=== PATIENT | female | born 1975 | race African-American/Black ===

== ENCOUNTER 2019-11-10 14:57 | Emergency (ER) | payer OTHER ==
[2019-11-10 15:15] VITALS: BP 150/92; PULSE 87; TEMP 98.5; BMI 37.0
[2019-11-10 17:02] LABS: BASO % 1.2 % (0-2.0); EOS % 1.3 % (0-4.5); HEMATOCRIT 40.7 % (32.4-45.2); HEMOGLOBIN 13.3 GM/dL (10.7-15.3); LYMPH % 33.8 % (8-40); MCH 27.5 pg (25.7-33.7); MCHC 32.6 g/dl (32.0-36.0); MEAN CELL VOLUME 84.3 fl (80-96); MEAN PLT VOLUME 9.7 fl (7.5-11.1); MONO % 8.6 % (3.8-10.2); NEUT % 55.1 % (42.8-82.8); PLATELET COUNT 302 K/MM3 (134-434); RBC 4.83 M/mm3 (3.60-5.2); RDW 15.7 % (11.6-15.6); WHITE BLOOD COUNT 7.4 K/mm3 (4.0-10.0)
--- NOTE | 2019-11-10 17:02 | PDOC ---
History of Present Illness - General Chief Complaint: Chest Pain Stated Complaint: RESPIRATORY INFECTION Time Seen by Provider: 11/10/19 16:01 History Source: Patient Exam Limitations: No Limitations - History of Present Illness Initial Comments: 11/10/19 16:54 Patient is a 44 year old female with h/o migraine, HTN, b/l menescus repair, c/o chest heaviness x 6 days. States this heaviness is constant, 6/10 across the chest with no aggravating or alleviating factors. Patient states she has had these symptoms in the past, and usually a respiratory infection. States in that instance she gets a Z-Yoshi from her PMD and her symptoms go away. States she called her PMD but he had no availability to see her today so is here for evaluation. Patient had recent travelled to [place] 10/18-. No leg swelling, no history of PE. FamHx: neg. she denies any cough, fever, chills, shortness of breath. She does not feel fatigue, weakness or malaise. Patient is also requesting a note to say she does not have the Viveros virus. Patient states she mentioned to her boss that she was having pressure and was sent home with a request that she brings a note before she comes back to work. PMD: Dr. Liam Pierson PSOCHX: occ etoh, neg cig, neg drug. ALL: NKDA GENERAL/CONSTITUTIONAL: [No fever or chills. No weakness. No weight change.] HEAD, EYES, EARS, NOSE AND THROAT: [No change in vision. No ear pain or discharge. No sore throat.] CARDIOVASCULAR: [(+) chest pain (-) shortness of breath.] RESPIRATORY: [No cough, wheezing, or hemoptysis.] GASTROINTESTINAL: [No nausea, vomiting, diarrhea or constipation. No rectal bleeding.] GENITOURINARY: [No dysuria, frequency, or change in urination.] MUSCULOSKELETAL: [No joint or muscle swelling or pain. No neck or back pain.] SKIN AND BREASTS: [No rash or easy bruising.] NEUROLOGIC: [No headache, vertigo, loss of consciousness, or loss of sensation.] PSYCHIATRIC: [No depression or anxiety.] ENDOCRINE: [No increased thirst. No abnormal weight change.] HEMATOLOGIC/LYMPHATIC: [No anemia, easy bleeding, or history of blood clots.] ALLERGIC/IMMUNOLOGIC: [No hives or skin allergy. No latex allergy.] GENERAL: [The patient is awake, alert, and fully oriented, in no acute distress.] HEAD: [Normal with no signs of trauma.] EYES: [Pupils equal, round and reactive to light, extraocular movements intact, sclera anicteric, conjunctiva clear.] ENT: [Ears normal, nares patent, oropharynx clear without exudates. Moist mucous membranes.] NECK: [Normal range of motion, supple without lymphadenopathy, JVD, or masses.] LUNGS: [Breath sounds equal, clear to auscultation bilaterally. No wheezes, and no crackles.] HEART: [Regular rate and rhythm, normal S1 and S2 without murmur, rub.] ABDOMEN: [Soft, nontender, normoactive bowel sounds. No guarding, no rebound. No masses.] EXTREMITIES: [Normal range of motion, no edema. No clubbing or cyanosis. No cords, erythema, or tenderness.] NEUROLOGICAL: [Cranial nerves II through XII grossly intact. Normal speech, normal gait.] PSYCH: [Normal mood, normal affect.] SKIN: [Warm, Dry, normal turgor, no rashes or lesions noted.] Past History - Past Medical History Allergies/Adverse Reactions: Allergies Allergy/AdvReac Type Severity Reaction Status Date / Time No Known Allergies Allergy Verified 11/10/19 15:09 Home Medications: Ambulatory Orders Azithromycin [Zithromax -] 250 mg PO DAILY #6 tablet 11/10/19 Fluconazole [Diflucan] 150 mg PO ONCE #1 tablet 11/10/19 Fluconazole [Diflucan] 150 mg PO ONCE #1 tablet 11/10/19 Frovatriptan Succinate 2.5 mg PO PRN 11/10/19 Nadolol 0 mg PO DAILY 11/10/19 Topiramate [Topamax] 25 mg PO BID 11/10/19 COPD: No - Psycho Social/Smoking Cessation Hx Smoking History: Never smoked Hx Alcohol Use: No Drug/Substance Use Hx: No *Physical Exam - Vital Signs Last Vital Signs Temp Pulse Resp BP Pulse Ox 98.5 F 87 20 150/92 100 11/10/19 15:09 11/10/19 15:11/10/19 15:11/10/19 15:11/10/19 15:09 ED Treatment Course - LABORATORY CBC & Chemistry Diagram: 11/10/19 16:30 11/10/19 16:30 - ADDITIONAL ORDERS Additional order review: Laboratory Results 11/10/19 11/10/19 16:30 16:30 PT with INR 13.30 H INR 1.13 H Sodium 140 Potassium 3.7 Chloride 109 H Carbon Dioxide 24 Anion Gap 7 L BUN 9.3 Creatinine 0.8 Est GFR (CKD-EPI)AfAm 103.19 Est GFR (CKD-EPI)NonAf 89.04 Random Glucose 84 Calcium 9.4 Total Bilirubin 0.4 AST 10 L ALT 18 Alkaline Phosphatase 59 Creatine Kinase 119 Troponin I < 0.02 Total Protein 7.4 Albumin 3.5 11/10/19 16:30 RBC 4.83 MCV 84.3 MCHC 32.6 RDW 15.7 H MPV 9.7 Neutrophils % 55.1 Lymphocytes % 33.8 Monocytes % 8.6 Eosinophils % 1.3 Basophils % 1.2 Medical Decision Making - Medical Decision Making 11/10/19 16:54 Patient is a 44 year old female with h/o migraine, HTN, b/l menescus repair, c/o chest heaviness x 6 days. States this heaviness is constant, 6/10 across the chest with no aggravating or alleviating factors. Patient states she has had these symptoms in the past, and usually a respiratory infection. States in that instance she gets a Z-Yoshi from her PMD and her symptoms go away. States she called her PMD but he had no availability to see her today so is here for evaluation. Patient had recent travelled to [place] 10/18-. No leg swelling, no history of PE. FamHx: neg. she denies any cough, fever, chills, shortness of breath. She does not feel fatigue, weakness or malaise. Patient is also requesting a note to say she does not have the Viveros virus. Patient states she mentioned to her boss that she was having pressure and was sent home with a request that she brings a note before she comes back to work. Patient is asymptomatic, non reproducible, nonpleuritic chest tightness Will get troponin x1, EKG, labs, chest x-ray 11/10/19 17:02 EKG: SR at 75, normal axis, no ST or T wave changes. Chest x-ray shows an infiltrate, could represent pneumonia or atelectasis. Troponin is negative No acute findings on lab work I discussed the physical exam findings, ancillary test results and final diagnoses with the patient. I answered all of the patient's questions. The patient was satisfied with the care received and felt comfortable with the discharge plan and treatment plan. The Patient agrees to follow up with the primary care physician within 24-72 hours. Discharge - Discharge Information Problems reviewed: Yes Clinical Impression/Diagnosis: Pneumonia Qualifiers: Pneumonia type: due to unspecified organism Laterality: unspecified laterality Lung location: unspecified part of lung Qualified Code(s): J18.9 - Pneumonia, unspecified organism Condition: Stable Disposition: HOME - Additional Discharge Information Prescriptions: Fluconazole [Diflucan] 150 mg PO ONCE #1 tablet Fluconazole [Diflucan] 150 mg PO ONCE #1 tablet Azithromycin [Zithromax -] 250 mg PO DAILY #6 tablet - Follow up/Referral Referrals: ON STAFF,NOT [Primary Care Provider] - - Patient Discharge Instructions Patient Printed Discharge Instructions: Pneumonia-Adult Additional Instructions: Your Discharge Instructions: You must call primary care physician within 24 hours to arrange follow-up. Return to the Emergency Department with any new, persistent or worsening symptoms, for fever, chills, SOB, dizziness or any other concerning changes that may occur. - Post Discharge Activity Work/Back to School Note: Back to Work
[2019-11-10 17:09] LABS: INR 1.13 (0.83-1.09); PROTHROMBIN TIME (PATIENT) 13.3 SEC (9.7-13.0)
[2019-11-10 17:37] LABS: ALBUMIN 3.5 g/dl (3.4-5.0); ALK PHOS 59 U/L (45-117); ANION GAP 7 MMOL/L (8-16); BILIRUBIN,TOTAL 0.4 mg/dL (0.2-1); BLOOD UREA NITROGEN 9.3 mg/dL (7-18); CALCIUM 9.4 mg/dL (8.5-10.1); CHLORIDE 109 mmol/L (98-107); CO2 24 mmol/L (21-32); CREATININE 0.8 mg/dL (0.55-1.3); GLUCOSE,RANDOM 84 mg/dL (74-106); POTASSIUM 3.7 mmol/L (3.5-5.1); SGOT/AST 10 U/L (15-37); SGPT/ALT 18 U/L (13-61); SODIUM 140 mmol/L (136-145); TOT PROT 7.4 g/dl (6.4-8.2)
--- NOTE | 2019-11-11 10:28 | EKG ---
Test Reason : Blood Pressure : / mmHG Vent. Rate : 075 BPM Atrial Rate : 075 BPM P-R Int : 146 ms QRS Dur : 088 ms QT Int : 396 ms P-R-T Axes : 073 042 050 degrees QTc Int : 442 ms NORMAL SINUS RHYTHM POSSIBLE LEFT ATRIAL ENLARGEMENT BORDERLINE ECG NO PREVIOUS ECGS AVAILABLE Confirmed by GINETTE ALVES MD ([id number]) on 11/11/2019 10:28:26 AM Referred By: Confirmed By:GINETTE ALVES MD
== END 2019-11-10 17:59 | disposition home or self-care (01) ==
LOC: JER 14:57 → JERFT 14:57 → JER 17:59
DX: J18.9 Pneumonia, unspecified organism (principal); I10 Essential (primary) hypertension
CPT/HCPCS: 36415; 71046-TC-FY; 80053; 82550; 84484; 85025; 85610; 93005; 93010; 99285-25

== ENCOUNTER 2020-05-05 16:37 | Emergency (ER) | payer OTHER ==
[2020-05-05 16:53] VITALS: BP 164/99; PULSE 92; TEMP 98.3; BMI 37.8
--- NOTE | 2020-05-05 17:22 | PDOC ---
History of Present Illness - General Chief Complaint: Pain Stated Complaint: PAIN ON KNEE Time Seen by Provider: 05/05/20 17:04 History Source: Patient Exam Limitations: No Limitations - History of Present Illness Initial Comments: 05/05/20 17:19 44-year-old female past medical history of mixed connective tissue disease presenting to the ED with left calf pain for 3 days. Patient states that she was at home had no inciting event and felt a sharp pain in her left calf which became progressively worse. Patient states the pain is worse on ambulation and improves with rest. 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 Past History - Medical History Allergies/Adverse Reactions: Allergies Allergy/AdvReac Type Severity Reaction Status Date / Time No Known Allergies Allergy Verified 05/05/20 16:40 Home Medications: Ambulatory Orders Azithromycin [Zithromax -] 250 mg PO DAILY #6 tablet 11/10/19 Fluconazole [Diflucan] 150 mg PO ONCE #1 tablet 11/10/19 Fluconazole [Diflucan] 150 mg PO ONCE #1 tablet 11/10/19 Frovatriptan Succinate 2.5 mg PO PRN 11/10/19 Nadolol 0 mg PO DAILY 11/10/19 Topiramate [Topamax] 25 mg PO BID 11/10/19 Ibuprofen [Ibu] 600 mg PO TID #30 tablet 05/05/20 COPD: No Other medical history: MIXED CONNECTIVE TISSUE DISEASE - Reproductive History Is Patient Now?: No - Immunization History Immunization Up to Date: Yes - Psycho-Social/Smoking History Smoking History: Never smoked - Substance Abuse Hx (Audit-C & DAST Scrn) How often the patient has a drink containing alcohol: Never Score: In Men: 4 or > Positive; In Women: 3 or > Positive: 0 Screen Result (Pos requires Nsg. Audit-10AR): Negative In the last yr the pt used illegal drug/Rx for NonMed reason: No Score: Yes response is considered Positive: 0 Screen Result (Positive result requires Nsg. DAST-10): Negative *Physical Exam - Vital Signs Last Vital Signs Temp Pulse Resp BP Pulse Ox 98.3 F 92 H 18 164/99 100 05/05/20 16:40 05/05/20 16:40 05/05/20 16:40 05/05/20 16:40 05/05/20 16:40 - Physical Exam 05/05/20 17:21 Gen: AAOx 3, no acute distress, comfortable, no signs of respiratory distress HENT: atraumatic, normocephalic with no laceration or contusion. Nasal mucosa without erythema. Oropharynx without erythema or exudates. Mucous membranes moist. EYES: PERRL, EOM intact, conjunctiva pink NECK: supple; trachea midline; no JVD, no lymphadenopathy, or thyromegaly CV: RRR no murmurs, gallops, or rubs. CHEST: CTA b/l no wheezing, rales or rhonchi ABD: +BS/ND. no TTP; soft, no rebound, no guarding EXTREMITY: no cyanosis or erythema. 2+ dorsalis pedis, posterior tibial, and radial pulse. No pedal edema; no calf swelling but tenderness to palpation of left posterior calf SKIN: no rash, warm and dry, no diaphoresis HEME: no purpura or ecchymosis NEURO: normal speech, CN II-XII intact, sensation intact, normal gait, no cerebellar deficits MS: 5/5 strength in all extremities, FROM intact in all extremities. ED Treatment Course - RADIOLOGY Radiology Studies Ordered: Category Date Time Status DUPLEX VASCUL US-1 LEG [US] Stat Ultrasound 05/05/20 17:18 Ordered Medical Decision Making - Medical Decision Making 05/05/20 17:21 44-year-old female with left posterior calf pain Vital signs stable except for asymptomatic hypertension Will obtain duplex of left lower extremity to rule out DVT Will reassess based on results Left lower extremity duplex study there is no evidence of DVT involving the left leg Pain is most likely MSK Pt to follow up with PCP in 1 week for repeat DVT study, pt agrees and understands Pt appears well and is safe and stable for discharge with strict return precautions including signs and symptoms requiring immediate return to the ED Supportive care instructions explained and given to pt. Reasons to return emergently to ER explained and given. Importance of follow up with PMD and other specialists as indicated stressed to pt. Pt verbalized understanding of instructions. Pt to follow up with PMD in 2 days. Discharge - Discharge Information Problems reviewed: Yes Clinical Impression/Diagnosis: Lower extremity pain, left Condition: Stable Disposition: HOME - Additional Discharge Information Prescriptions: Ibuprofen [Ibu] 600 mg PO TID #30 tablet - Follow up/Referral Referrals: Liam Ochoa [Primary Care Provider] - - Patient Discharge Instructions Patient Printed Discharge Instructions: DI for Calf Muscle Strain Additional Instructions: PLEASE FOLLOW UP WITH YOUR PCP WITHOUT FAIL TO SCHEDULE REPEAT LEFT LOWER EXTREMITY DVT STUDY - Post Discharge Activity Work/Back to School Note: Back to Work
[2020-05-05] MEDS ORDERED: KETOROLAC TROMETHAMINE 30 MG/1 ML VIAL IM ONE (17:40)
[2020-05-05] MEDS ORDERED: KETOROLAC TROMETHAMINE 30 MG/1 ML VIAL ONE (17:42)
== END 2020-05-05 18:23 | disposition home or self-care (01) ==
LOC: JER 16:37 → JERFT 16:37
PROC: 3E023GC Introduction of Other Therapeutic Substance into Muscle, Percutaneous Approach (ICD-10-PCS; principal; 2020-05-05)
DX: M79.662 Pain in left lower leg (principal)
CPT/HCPCS: 93971-TC; 99284-25

== ENCOUNTER 2020-10-17 16:24 | Emergency (ER) | payer OTHER ==
[2020-10-17 16:47] VITALS: BP 161/91; PULSE 90; TEMP 99.4; BMI 38.0
[2020-10-17] MEDS ORDERED: KETOROLAC TROMETHAMINE 30 MG/1 ML VIAL IM ONE (17:56)
[2020-10-17] MEDS ORDERED: KETOROLAC TROMETHAMINE 30 MG/1 ML VIAL ONE (17:58)
== END 2020-10-17 18:33 | disposition home or self-care (01) ==
LOC: JERFT 16:24
PROC: 3E0233Z Introduction of Anti-inflammatory into Muscle, Percutaneous Approach (ICD-10-PCS; principal; 2020-10-17)
DX: M62.838 Other muscle spasm (principal); M25.511 Pain in right shoulder
CPT/HCPCS: 72100-TC-FY; 73030-TC-RT-FY; 99284-25

== ENCOUNTER 2021-03-05 02:22 | Emergency (ER) | payer OTHER ==
[2021-03-05 02:54] VITALS: BMI 38.0
[2021-03-05] MEDS ORDERED: SODIUM CHLORIDE 0.9% 500 ML INFUS.BAG IV ONE (03:00)
[2021-03-05] MEDS ORDERED: FAMOTIDINE 20 MG/50 ML IVPB 50 ML IVPB ONE (03:00)
[2021-03-05] MEDS ORDERED: methylPREDNISolone NA SUCC 125 MG/2 ML VIAL IVPB ONE (03:04)
[2021-03-05] MEDS ORDERED: methylPREDNISolone NA SUCC 125 MG/2 ML VIAL ONE (03:08)
[2021-03-05] MEDS ORDERED: FAMOTIDINE 20 MG/50 ML IVPB 20 MG/50 ML MG IVPB ONE ×4 (03:08→08:38)
[2021-03-05 03:57] LABS: BASO % 0.6 % (0-2.0); EOS % 0.3 % (0-4.5); HEMATOCRIT 45.2 % (32.4-45.2); HEMOGLOBIN 15.1 GM/dL (10.7-15.3); LYMPH % 34.4 % (8-40); MCH 28.3 pg (25.7-33.7); MCHC 33.3 g/dl (32.0-36.0); MEAN CELL VOLUME 84.9 fl (80-96); MEAN PLT VOLUME 8.4 fl (7.5-11.1); MONO % 6.1 % (3.8-10.2); NEUT % 58.6 % (42.8-82.8); PLATELET COUNT 385 10^3/uL (134-434); RBC 5.32 M/mm3 (3.60-5.2); RDW 15.2 % (11.6-15.6); WHITE BLOOD COUNT 9.2 K/mm3 (4.0-10.0)
[2021-03-05] MEDS ORDERED: EPINEPHrine 1:1,000 0.3 MG/0.3 ML SYR IM ONE (04:12)
[2021-03-05] MEDS ORDERED: EPINEPHrine/PF 1 MG/1 ML (1:1,000) AMPULE ONE (04:15)
[2021-03-05 04:17] LABS: ALBUMIN 3.4 g/dl (3.4-5.0); CALCIUM 8.8 mg/dL (8.5-10.1)
[2021-03-05 04:18] LABS: BLOOD UREA NITROGEN 12.1 mg/dL (7-18)
[2021-03-05 04:21] LABS: CREATININE 0.8 mg/dL (0.55-1.3)
[2021-03-05 04:22] LABS: BILIRUBIN,TOTAL 0.4 mg/dL (0.2-1); TOT PROT 7.7 g/dl (6.4-8.2)
[2021-03-05] MEDS ORDERED: predniSONE 20 MG TABLET (UD) PO ONE (08:33)
[2021-03-05] MEDS ORDERED: predniSONE 20 MG TABLET (UD) ONE (08:38)
[2021-03-05] MEDS ORDERED: diphenhydrAMINE HCL 25 MG CAPSULE (FP) PO ONE ×2 (10:56→11:02)
[2021-03-05 11:09] VITALS: BP 138/83; PULSE 89; TEMP 98.5
== END 2021-03-05 12:36 | disposition home or self-care (01) ==
LOC: JER 02:22
PROC: 3E033GC Introduction of Other Therapeutic Substance into Peripheral Vein, Percutaneous Approach (ICD-10-PCS; principal; 2021-03-05)
PROC: 3E023GC Introduction of Other Therapeutic Substance into Muscle, Percutaneous Approach (ICD-10-PCS; principal; 2021-03-05)
DX: L50.9 Urticaria, unspecified (principal)
CPT/HCPCS: 36415; 80053; 85025; 99284-25

== ENCOUNTER 2021-09-21 22:17 | Emergency (ER) | payer OTHER ==
[2021-09-21 22:25] VITALS: BMI 38.0
[2021-09-22 00:03] LABS: BASO % 0.4 % (0-2.0); EOS % 0.2 % (0-4.5); HEMATOCRIT 37.3 % (32.4-45.2); HEMOGLOBIN 12.4 GM/dL (10.7-15.3); LYMPH % 11.9 % (8-40); MCH 28.3 pg (25.7-33.7); MCHC 33.1 g/dl (32.0-36.0); MEAN CELL VOLUME 85.6 fl (80-96); MEAN PLT VOLUME 8.1 fl (7.5-11.1); MONO % 5.2 % (3.8-10.2); NEUT % 82.3 % (42.8-82.8); PLATELET COUNT 303 10^3/uL (134-434); RBC 4.36 M/mm3 (3.60-5.2); RDW 17.5 % (11.6-15.6); WHITE BLOOD COUNT 12.6 K/mm3 (4.0-10.0)
[2021-09-22 00:15] LABS: INR 1.16 (0.83-1.09); PROTHROMBIN TIME (PATIENT) 13.4 SEC (9.7-13.0)
[2021-09-22 00:35] LABS: ALBUMIN 3.7 g/dl (3.4-5.0); BLOOD UREA NITROGEN 8.3 mg/dL (7-18); CALCIUM 9.2 mg/dL (8.5-10.1)
[2021-09-22 00:38] LABS: CREATININE 0.8 mg/dL (0.55-1.3)
[2021-09-22 00:40] LABS: BILIRUBIN,TOTAL 0.4 mg/dL (0.2-1); TOT PROT 7.6 g/dl (6.4-8.2)
[2021-09-22] MEDS ORDERED: ACETAMINOPHEN 325 MG TABLET (FP) PO ONE (01:37)
[2021-09-22] MEDS ORDERED: LACTATED RINGERS SOLUTION 1000 ML INFUS.BAG IV ONE (01:37)
[2021-09-22] MEDS ORDERED: ACETAMINOPHEN 325 MG TABLET (FP) ONE (01:38)
[2021-09-22 02:02] VITALS: BP 135/70; PULSE 80; TEMP 99.4
[2021-09-22] MEDS ORDERED: KETOROLAC TROMETHAMINE 15 MG/ML VIAL IVPUSH ONE (04:09)
[2021-09-22] MEDS ORDERED: KETOROLAC TROMETHAMINE 15 MG/ML VIAL ONE (04:14)
== END 2021-09-22 05:29 ==
LOC: JER 22:17
PROC: 3E0233Z Introduction of Anti-inflammatory into Muscle, Percutaneous Approach (ICD-10-PCS; principal; 2021-09-22)
DX: R10.84 Generalized abdominal pain (principal)
CPT/HCPCS: 36415; 71046-TC-FY; 74019-TC-FY; 74177-TC; 80053; 83605; 83690; 84703; 85025; 85610; 99285-25; Q9967